=== PATIENT | male | born 1950 | race African-American/Black ===

== ENCOUNTER 2023-05-30 20:23 | Emergency (ER) | payer OTHER ==
[~2023-05-30] VITALS: Ht 180.3 cm; Wt 81.8 kg
[~2023-05-30 20:23] MED LIST: GLIP10TA9 PO; METF-370 PO
[2023-05-30 20:31] VITALS: BP 133/76; RESP 18; O2SAT 99
[2023-05-30 21:03] LABS: Basophils # (auto) 0 10 ^3/uL (0-0.2); Eosinophils # (auto) 0 10 ^3/uL (0-0.8); Eosinophils % (auto) 0.8 % (0.0-7.0); Hematocrit 41.1 % (41.0-53.0); Hemoglobin 13.8 g/dL (13.5-17.5); Lymphocytes # (auto) 1.4 10 ^3/uL (0.4-5.4); Lymphocytes % (auto) 33.3 % (10.0-50.0); Mean Corpuscular Hemoglobin 30.3 pg (28.0-32.0); Mean Corpuscular Hgb Conc. 33.6 g/dL (32.0-36.0); Mean Corpuscular Volume 90.1 fL (80.0-100.0); Monocytes # (auto) 0.4 10 ^3/uL (0-1.3); Monocytes % (auto) 8.6 % (0.0-12.0); Neutrophils # (auto) 2.4 10 ^3/uL (1.6-8.6); Neutrophils % (auto) 56.3 % (37.0-80.0); Nucleated Red Blood Cells % 0.2 %; Red Blood Cells 4.56 10^6/uL (4.5-5.90); Red Cell Distribution Width 13.7 % (11.8-14.3); White Blood Cell 4.2 10^3/uL (4.4-10.8)
[2023-05-30 21:25] LABS: Alanine Aminotransferase 18 U/L (7-40); Albumin 4.7 g/dL (3.2-4.8); Alkaline Phosphatase 93 U/L (46-116); Anion Gap 6 (5-15); Aspartate Aminotransferase 12 U/L (13-40); BUN/Creatinine Ratio 8.3 (10.0-20.0); Blood Urea Nitrogen 7 mg/dL (9-23); Calcium 9.8 mg/dL (8.7-10.4); Carbon Dioxide 28 mmol/L (20-30); Chloride 104 mmol/L (98-107); Glucose 182 mg/dL (74-106); Lipase 93 U/L (12-53); Potassium 4.1 mmol/L (3.5-5.1); Sodium 138 mmol/L (136-145)
[2023-05-30 21:26] LABS: Bilirubin, Total 0.9 mg/dL (0.2-1.0); Total Protein 7.5 g/dL (5.7-8.2)
[2023-05-31 00:47] VITALS: PULSE 92
== END 2023-05-31 06:13 | disposition home or self-care (01) ==
LOC: EDBD 20:23 → ER 20:23
DX: D72.819 Decreased white blood cell count, unspecified (principal); E11.65 Type 2 diabetes mellitus with hyperglycemia; R10.11 Right upper quadrant pain; R10.12 Left upper quadrant pain; R74.8 Abnormal levels of other serum enzymes; I10 Essential (primary) hypertension; Z98.890 Other specified postprocedural states; Z87.891 Personal history of nicotine dependence; Z88.8 Allergy status to other drugs, medicaments and biological substances; Z79.899 Other long term (current) drug therapy
CPT/HCPCS: 36415; 74176; 80053; 83690; 85025; 93005

== ENCOUNTER 2024-01-17 21:43 | Inpatient (IN) | payer OTHER ==
[~2024-01-17] VITALS: Ht 177.8 cm; Wt 61.4 kg
[2024-01-17 22:55] LABS: Basophils # (auto) 0 10 ^3/uL (0-0.2); Basophils % (auto) 0.6 % (0.0-2.0); Eosinophils # (auto) 0 10 ^3/uL (0-0.8); Eosinophils % (auto) 0.4 % (0.0-7.0); Hematocrit 32.6 % (41.0-53.0); Hemoglobin 11.1 g/dL (13.5-17.5); Lymphocytes # (auto) 0.5 10 ^3/uL (0.4-5.4); Lymphocytes % (auto) 9.8 % (10.0-50.0); Mean Corpuscular Hemoglobin 29.1 pg (28.0-32.0); Mean Corpuscular Hgb Conc. 34.1 g/dL (32.0-36.0); Mean Corpuscular Volume 85.6 fL (80.0-100.0); Monocytes # (auto) 0.5 10 ^3/uL (0-1.3); Monocytes % (auto) 9.7 % (0.0-12.0); Neutrophils # (auto) 4.3 10 ^3/uL (1.6-8.6); Neutrophils % (auto) 79.5 % (37.0-80.0); Nucleated Red Blood Cells % 0.1 %; Red Blood Cells 3.81 10^6/uL (4.5-5.90); Red Cell Distribution Width 13.8 % (11.8-14.3); White Blood Cell 5.4 10^3/uL (4.4-10.8)
[2024-01-17 22:57] LABS: Alanine Aminotransferase 43 U/L (7-40); Alkaline Phosphatase 212 U/L (46-116); Anion Gap 7 (5-15); Aspartate Aminotransferase 36 U/L (13-40); Bilirubin, Total 0.6 mg/dL (0.2-1.0); Calcium 9.5 mg/dL (8.7-10.4); Carbon Dioxide 27 mmol/L (20-30); Chloride 98 mmol/L (98-107); Glucose 374 mg/dL (74-106); Potassium 3.6 mmol/L (3.5-5.1); Sodium 132 mmol/L (136-145); Total Protein 7.8 g/dL (5.7-8.2)
[2024-01-17 23:00] LABS: BUN/Creatinine Ratio 7.4 (10.0-20.0); Blood Urea Nitrogen < 5 mg/dL (9-23)
[2024-01-18 04:30] VITALS: PULSE 105; RESP 16; O2SAT 98
[2024-01-18 07:39] VITALS: PULSE 90; RESP 16; O2SAT 98
[2024-01-18] MEDS ORDERED: HYDROmorphone HCL 2 MG/ML VL/or syr IM ONE (13:45)
[2024-01-18] MEDS ORDERED: ONDANSETRON ODT 4 MG TAB PO ONE (13:45)
[2024-01-18] MEDS: ONDANSETRON ODT 4 MG TAB PO ONE (14:46)
[2024-01-18] MEDS: HYDROmorphone HCL 2 MG/ML VL/or syr IV ONE (14:47)
[2024-01-18] MEDS ORDERED: NITROGLYCERIN 0.4 MG SL TAB SL PRN (17:30)
[2024-01-18] MEDS ORDERED: MORPHINE SULFATE INJ 2 MG/ml SYRG IV PRN (17:30)
[2024-01-18] MEDS ORDERED: DEXTROSE (50%) 50ML SYRG IV PRN ×2 (17:30)
[2024-01-18 20:29] VITALS: PULSE 99; RESP 21; O2SAT 100
[2024-01-18 20:33] VITALS: BP 110/60; PULSE 78; RESP 18; TEMP 98; O2SAT 97
[2024-01-18] MEDS: SODIUM CHLORIDE 0.9% 1,000 ML IV SCH (21:08)
[2024-01-18] MEDS: HYDROmorphone HCL 2 MG/ML VL/or syr IV PRN (21:12)
[2024-01-18] MEDS: ENOXAPARIN SOD 40 MG/0.4 ML SYRINGE SC SCH (21:26)
[2024-01-18] MEDS: ACCU-CHEK COMFORT CURVE STRIP VI SCH (21:38)
[2024-01-18] MEDS: InsuLIN REG 1unit/0.01ml Soln (100units/ml) SC SCH (21:44)
[2024-01-18] MEDS: DOCUSATE SOD 100 MG CAP PO SCH (21:59)
[2024-01-18] MEDS ORDERED: InsuLIN REG 1unit/0.01ml Soln (100units/ml) SC SCH (22:00)
[2024-01-18] MEDS ORDERED: ACCU-CHEK COMFORT CURVE STRIP VI SCH (22:00)
[2024-01-18] MEDS ORDERED: ATOR10TA52 PO (23:03)
[2024-01-18] MEDS ORDERED: TAMS0.4C36 PO (23:03)
[2024-01-18] MEDS ORDERED: TRAZ-227 PO (23:03)
[2024-01-18] MEDS ORDERED: LISI-275 PO (23:03)
[2024-01-18] MEDS ORDERED: GABA800T97 PO (23:03)
[2024-01-18] MEDS ORDERED: MORP15TA PO (23:06)
[2024-01-18] MEDS ORDERED: LORA-1121 PO (23:06)
[2024-01-18] MEDS ORDERED: HYDR-4798 PO (23:06)
[2024-01-19] VITALS (8 sets, daily range): BP systolic 125–147; BP diastolic 61–78; PULSE 79–99; RESP 16–22; TEMP 97.8–98.6; O2SAT 91–99
[2024-01-19 07:14] LABS: Basophils # (auto) 0 10 ^3/uL (0-0.2); Basophils % (auto) 0.7 % (0.0-2.0); Eosinophils # (auto) 0.1 10 ^3/uL (0-0.8); Eosinophils % (auto) 1.2 % (0.0-7.0); Hematocrit 31.6 % (41.0-53.0); Hemoglobin 10.6 g/dL (13.5-17.5); Lymphocytes # (auto) 1.1 10 ^3/uL (0.4-5.4); Lymphocytes % (auto) 21.1 % (10.0-50.0); Mean Corpuscular Hemoglobin 28.5 pg (28.0-32.0); Mean Corpuscular Hgb Conc. 33.6 g/dL (32.0-36.0); Monocytes # (auto) 0.6 10 ^3/uL (0-1.3); Monocytes % (auto) 12.3 % (0.0-12.0); Neutrophils # (auto) 3.3 10 ^3/uL (1.6-8.6); Neutrophils % (auto) 64.7 % (37.0-80.0); Nucleated Red Blood Cells % 0.1 %; Red Blood Cells 3.72 10^6/uL (4.5-5.90); White Blood Cell 5.1 10^3/uL (4.4-10.8)
[2024-01-19 07:21] LABS: Alanine Aminotransferase 37 U/L (7-40); Albumin 3.4 g/dL (3.2-4.8); Alkaline Phosphatase 206 U/L (46-116); Anion Gap 7 (5-15); Aspartate Aminotransferase 40 U/L (13-40); Bilirubin, Total 0.7 mg/dL (0.2-1.0); Calcium 8.6 mg/dL (8.5-10.1); Carbon Dioxide 29 mmol/L (20-30); Chloride 101 mmol/L (98-107); Glucose 90 mg/dL (74-106); Potassium 2.9 mmol/L (3.5-5.1); Sodium 137 mmol/L (136-145); Total Protein 6.6 g/dL (5.7-8.2)
[2024-01-19 07:22] LABS: BUN/Creatinine Ratio 11.1 (10.0-20.0); Blood Urea Nitrogen < 5 mg/dL (9-23)
[2024-01-19] MEDS: POTASSIUM EFFERVESENT TAB 25 MEQ PO SCH ×2 (14:03→18:00)
[2024-01-19] MEDS: Ensure HIGH Protein Chocolate 8oz Bottle PO SCH (18:00)
[2024-01-20] VITALS (7 sets, daily range): BP systolic 113–156; BP diastolic 51–81; PULSE 86–100; RESP 16–22; TEMP 97.8–98.8; O2SAT 97–100
[2024-01-20] MEDS: ONDANSETRON HCL 4 MG/2 ML VIAL IV PRN (07:08)
[2024-01-20 09:03] LABS: Basophils # (auto) 0 10 ^3/uL (0-0.2); Basophils % (auto) 0.4 % (0.0-2.0); Eosinophils # (auto) 0 10 ^3/uL (0-0.8); Eosinophils % (auto) 0.1 % (0.0-7.0); Hematocrit 30.7 % (41.0-53.0); Hemoglobin 10.3 g/dL (13.5-17.5); Lymphocytes # (auto) 0.5 10 ^3/uL (0.4-5.4); Lymphocytes % (auto) 8.5 % (10.0-50.0); Mean Corpuscular Hemoglobin 28.5 pg (28.0-32.0); Mean Corpuscular Hgb Conc. 33.6 g/dL (32.0-36.0); Mean Corpuscular Volume 84.8 fL (80.0-100.0); Monocytes # (auto) 0.7 10 ^3/uL (0-1.3); Monocytes % (auto) 11.2 % (0.0-12.0); Neutrophils % (auto) 79.8 % (37.0-80.0); Nucleated Red Blood Cells % 0.1 %; Red Blood Cells 3.63 10^6/uL (4.5-5.90); Red Cell Distribution Width 13.6 % (11.8-14.3); White Blood Cell 6.3 10^3/uL (4.4-10.8)
[2024-01-20 09:20] LABS: Alanine Aminotransferase 34 U/L (7-40); Albumin 3.1 g/dL (3.2-4.8); Alkaline Phosphatase 190 U/L (46-116); Anion Gap 4 (5-15); Aspartate Aminotransferase 54 U/L (13-40); Bilirubin, Total 0.7 mg/dL (0.2-1.0); Calcium 8.3 mg/dL (8.7-10.4); Carbon Dioxide 30 mmol/L (20-30); Chloride 102 mmol/L (98-107); Glucose 86 mg/dL (74-106); Potassium 3.4 mmol/L (3.5-5.1); Sodium 136 mmol/L (136-145); Total Protein 6.3 g/dL (5.7-8.2)
[2024-01-20 09:24] LABS: BUN/Creatinine Ratio 10.9 (10.0-20.0); Blood Urea Nitrogen < 5 mg/dL (9-23)
[2024-01-20] MEDS: HYDROmorphone HCL 2 MG TAB PO PRN (12:14)
[2024-01-21 01:00] VITALS: BP 126/80; PULSE 94; RESP 19; TEMP 98; O2SAT 97
[2024-01-21 05:00] VITALS: BP 141/75; PULSE 101; RESP 18; TEMP 98.7; O2SAT 97
[2024-01-21 06:44] LABS: Basophils # (auto) 0 10 ^3/uL (0-0.2); Basophils % (auto) 0.5 % (0.0-2.0); Eosinophils # (auto) 0 10 ^3/uL (0-0.8); Eosinophils % (auto) 0.1 % (0.0-7.0); Hematocrit 35.3 % (41.0-53.0); Hemoglobin 11.7 g/dL (13.5-17.5); Mean Corpuscular Hemoglobin 28.7 pg (28.0-32.0); Mean Corpuscular Hgb Conc. 33.2 g/dL (32.0-36.0); Mean Corpuscular Volume 86.7 fL (80.0-100.0); Monocytes # (auto) 0.7 10 ^3/uL (0-1.3); Monocytes % (auto) 10.8 % (0.0-12.0); Neutrophils # (auto) 4.4 10 ^3/uL (1.6-8.6); Neutrophils % (auto) 71.6 % (37.0-80.0); Nucleated Red Blood Cells % 0.1 %; Red Blood Cells 4.08 10^6/uL (4.5-5.90); White Blood Cell 6.1 10^3/uL (4.4-10.8)
[2024-01-21 06:56] LABS: Alanine Aminotransferase 29 U/L (7-40); Albumin 3.1 g/dL (3.2-4.8); Alkaline Phosphatase 188 U/L (46-116); Anion Gap 10 (5-15); Aspartate Aminotransferase 52 U/L (13-40); Calcium 8.2 mg/dL (8.5-10.1); Carbon Dioxide 23 mmol/L (20-30); Chloride 102 mmol/L (98-107); Glucose 101 mg/dL (74-106); Potassium 3.4 mmol/L (3.5-5.1); Sodium 135 mmol/L (136-145)
[2024-01-21 06:57] LABS: Bilirubin, Total 1.1 mg/dL (0.2-1.0); Total Protein 6.3 g/dL (5.7-8.2)
[2024-01-21 07:00] LABS: BUN/Creatinine Ratio 13.5 (10.0-20.0); Blood Urea Nitrogen < 5 mg/dL (9-23)
[2024-01-21 08:38] VITALS: BP 167/85; PULSE 95; RESP 16; TEMP 98.6; O2SAT 98
[2024-01-21] MEDS: OXYCODONE W/ ACETAMINOPHEN 5/325MG TABLET PO PRN (10:53)
[2024-01-21 12:00] VITALS: BP 164/74; PULSE 76; RESP 16; TEMP 97.8; O2SAT 100
[2024-01-21] MEDS ORDERED: cloNIDine HCL 0.1 MG TAB PO PRN (14:15)
[2024-01-21 14:26] VITALS: BP 164/76; PULSE 76; RESP 16; TEMP 97.8; O2SAT 100
[2024-01-21 17:00] VITALS: BP 161/76; PULSE 65; RESP 16; TEMP 98.4; O2SAT 99
[2024-01-21 20:25] LABS: COVID19 ANTIGEN SOFIA FIA NEGATIVE (NEGATIVE)
== END 2024-01-21 18:50 | DRG 947 ==
LOC: ER 21:43 → EDBD 21:43 → ER 01-18 03:38 → EAST 01-18 17:35 → OVERFLOW 01-18 17:35 → EAST 01-18 20:44
PROVIDERS: ADMIT Nurse Practitioner Family; ATTEND Family Medicine
DX: G89.3 Neoplasm related pain (acute) (chronic) (principal); G93.41 Metabolic encephalopathy; C25.9 Malignant neoplasm of pancreas, unspecified; I10 Essential (primary) hypertension; H54.62 Unqualified visual loss, left eye, normal vision right eye; F03.90 Unspecified dementia, unspecified severity, without behavioral disturbance, psychotic disturbance, mood disturbance, and anxiety; K59.00 Constipation, unspecified; S00.11XA Contusion of right eyelid and periocular area, initial encounter; E11.9 Type 2 diabetes mellitus without complications; S00.83XA Contusion of other part of head, initial encounter; Z79.4 Long term (current) use of insulin; Z85.07 Personal history of malignant neoplasm of pancreas; Z88.6 Allergy status to analgesic agent; W18.39XA Other fall on same level, initial encounter; Y08.89XA Assault by other specified means, initial encounter; Y93.89 Activity, other specified; Y92.89 Other specified places as the place of occurrence of the external cause; Y99.8 Other external cause status
CPT/HCPCS: 36415; 80053; 82140; 82962; 85025; 87426; 93005; 97163; G0378; J1815; J2405; Q0162